=== PATIENT | male | born 1945 | race Caucasian/White ===

== ENCOUNTER 2019-08-29 10:41 | Outpatient (CLI) | payer MEDICARE, OTHER, SELFPAY ==
[2019-08-29 11:02] VITALS: BMI 28.8
--- NOTE | 2019-08-29 11:02 | ECG_ITS ---
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 Interpretive Statements NAME OF STUDY: TREADMILL STRESS ECHOCARDIOGRAM INDICATION: Chest Pain PROCEDURE: At the baseline, the patient's blood pressure was 126/86 mmHg with a heart rate of 74 bpm. The baseline electrocardiogram showed normal sinus rhythm, normal axis with normal ST-Ts. The patient exercised for 4 minutes 20 seconds on a standard Duncan protocol. Patient attained a maximum heart rate of 135 beats per minute(92 % of the maximum predicted heart rate) with a blood pressure at the peak exercise of 188/85 mm Hg oxygen saturation 94%. The EKG at the peak exercise revealed sinus tachycardia with no significant ST-T wave changes. Patient did not have any chest pain or any significant EKG changes with the exercise During the recovery phase, there were no new changes. Blood pressure at the end of the recovery phase was 171/77 mm Hg with a heart rate of 93 beats per minute oxygen saturation 98%. Echocardiographic pictures were taken at the baseline, immediately following the peak exercise and during the recovery phase. CONCLUSION: 1. Normal EKG response to treadmill exercise. 2. No exercise-induced chest pain or cardiac arrhythmia 3. Decreased exercise tolerance, attained a maximum of 7 METs. Maximum VO2 of 24.5 mL/kg/min 4. Please see separate report for the echocardiographic response to exercise. Electronically Signed On 09-02-2019 14:15:19 CDT by Peggy Quezada M.D. [id number]
--- NOTE | 2019-08-29 11:04 | USCV_ITS ---
Cem Ramos Age: 74 Gender: M : 1945 Exam Date: 08/29/2019 11:21 Ordering Phys: Bonnie Lagos Technologist: Josesito Decker Exam Location: [facility] [place] Indication: Rhythm: Sinus Patient History: Dyspnea/SOB, Hypertension, Fomer Smoker, HLD Cardiac Medications: STEPHANIE Inhibitor, Beta ashley, Statin Medications in past 24 hours: None Contrast: Stress Results Protocol: Duncan Total dose(mL): Exercise Duration (min:sec): 4:20 METS: 7.0 Resting HR: 74 Resting BP: 126 / 86 Peak HR: 146 Peak BP: 188 / 86 Max Predicted HR: 146 100 % Max Predicted HR Target HR: 124 Double Product: 46173 Stress Summary: The patient's target heart rate was achieved The hemodynamic response to exercise was normal BP Response: Normal Reason for Termination: Test terminated after reaching target heart rate (85% max predicted) Cardiac Symptoms: Dyspnea ECG Analysis Resting ECG: Stress ECG: Arrhythmia: MEASUREMENTS (Male/Female) Normal Values FINDINGS PROCEDURE: At the baseline, the patient's blood pressure was 126/86 mmHg with a heart rate of 74 bpm. The patient exercised for 4 minutes 20 seconds on a standard Duncan protocol. Patient attained a maximum heart rate of 146 beats per minute (100 % of the maximum predicted heart rate) with a blood pressure at the peak exercise of 188/86 mm Hg. During the recovery phase, there were no new changes. Echocardiographic pictures were taken at the baseline, immediately following the peak exercise and during the recovery phase. Baseline echocardiogram: Normal left ventricular size and systolic function with ejection fraction estimated at 60 %. No regional wall motion abnormalities. Normal right ventricle size and systolic function. Normal left and right atrial size. Structurally normal tricuspid and mitral valve. No pericardial effusion. No intracardiac masses. Peak exercise echocardiogram: Normal augmentation of left ventricular systolic function with exercise. No new regional wall motion abnormalities. Recovery echocardiogram: Left ventricular systolic function returned to normal. No regional wall motion abnormalities. CONCLUSIONS 1. This is a treadmill stress echocardiogram. 2. Fair exercise tolerance, attained a maximum of 7 METs. Double product of 27,449. 3. Normal blood pressure and heart rate response to exercise. 4. Normal echocardiographic response to exercise. 5. Please see separate report for the EKG portion of the study. Peggy Quezada MD (Electronically Signed) Final Date: 02 September 2019 14:24 S
[2019-08-29 11:24] VITALS: BP 135/81; PULSE 99
== END 2019-08-29 10:42 | disposition home or self-care (01) ==
LOC: CDL 10:41
PROVIDERS: Family Provider Nurse Practitioner; Visit Provider Physician Assistant
DX: R07.9 Chest pain, unspecified (principal); R06.02 Shortness of breath
CPT/HCPCS: 93017; 93350

== ENCOUNTER 2020-09-08 06:00 | Outpatient (RCR) | payer MEDICARE, OTHER, SELFPAY | END 2020-09-10 23:59 | disposition home or self-care (01) | LOC: MPT 06:00 | PROVIDERS: PCP Physician Assistant; Referring Provider Family Medicine Adult Medicine; Visit Provider Family Medicine Adult Medicine | DX: M50.30 Other cervical disc degeneration, unspecified cervical region (principal) | CPT/HCPCS: 97140; 97161 ==

== ENCOUNTER 2020-09-11 06:00 | Outpatient (RCR) | payer MEDICARE, OTHER, SELFPAY | END 2020-10-11 23:59 | disposition home or self-care (01) | LOC: MPT 06:00 | PROVIDERS: PCP Physician Assistant; Referring Provider Family Medicine Adult Medicine; Visit Provider Family Medicine Adult Medicine | DX: M50.30 Other cervical disc degeneration, unspecified cervical region (principal) | CPT/HCPCS: 97032; 97110; 97140; G0283 ==

== ENCOUNTER → 2021-01-21 14:24 | Outpatient (BNVA) | payer MEDICARE, OTHER, SELFPAY | PROVIDERS: PCP Physician Assistant; Referring Provider Family Medicine Adult Medicine; Visit Provider Specialist | DX: M17.0 Bilateral primary osteoarthritis of knee (principal) | CPT/HCPCS: 73560; 73565 ==

== ENCOUNTER 2021-02-24 12:44 | Outpatient (CLI) | payer MEDICARE, OTHER, SELFPAY ==
--- NOTE | 2021-02-24 12:51 | XR_ITS ---
WS: [id number] XR chest 2V* 82911 REASON FOR EXAM: dyspnea FINDINGS: The chest is unchanged compared to 11/29/2018. Moderate tortuosity thoracic aorta. Normal heart size. Calcified granulomatous disease in both hemithoraces. No active pulmonary parenchymal or pleural disease. Mild to moderate changes of degenerative spondylosis in the mid and lower thoracic spine. XR/XR chest 2V* 70145 IMPRESSION: No acute chest abnormality.
[2021-02-24 13:20] LABS: Basophils # 0.1 10^3/uL (0.0-0.1); Basophils % 0.6 %; Eosinophils # 0.3 10^3/uL (0.0-0.8); Hematocrit 48.9 % (42.0-52.0); Hemoglobin 16.3 g/dL (11.7-16.6); Lymphocytes # 3.5 10^3/uL (0.8-4.8); Lymphocytes % 41.8 %; Mean Corpuscular HGB Conc 33.3 g/dL (30.0-36.0); Mean Corpuscular Hemoglobin 30.5 pg (28.0-34.0); Mean Corpuscular Volume 91.6 fl (80-94); Mean Platelet Volume 9.5 fL (7.4-10.4); Monocytes # 0.7 10^3/uL (0.2-0.9); Monocytes % 8.3 %; Neutrophils # 3.72 10^3/uL (1.8-7.7); Neutrophils % 45.1 %; Nucleated Red Blood Cells % 0 %; Platelet Count 333 10^3/cmm (130-400); Red Blood Count 5.34 10^6/uL (4.1-5.3); White Blood Count 8.3 10^3/uL (4.0-10.0)
[2021-02-25 16:41] LABS: Alternaria Alternata (M6) Ige <0.10 kU/L; Alternaria Class 0; Bermuda Class 0; Bermuda Grass (G2) Ige <0.10 kU/L; Cat Dander (E1) Ige 0.35 kU/L; Cat Dander Class 1; Common Ragweed (Short) (W1) Ig <0.10 kU/L; D. Farinae Class 0; Dermatophagoides Class 0; Dermatophagoides Farinae (D2) <0.10 kU/L; Dermatophagoides Pteronyssinus <0.10 kU/L; Dog Dander (E5) Ige 0.75 kU/L; Dog Dander Class 2; Elm (T8) Ige <0.10 kU/L; Elm Class 0; English Plantain (W9) Ige <0.10 kU/L; English Plantain Class 0; House Dust (Greer) (H1) Ige 0.14 kU/L; House Dust (Hollister- Stier) 0.18 kU/L; House Dust Class 0/1; Immunoglobulin E 230 kU/L (<OR=114); Johnson Grass (G10) Ige <0.10 kU/L; Johnson Grass Cl 0; June Grass Class 0; June Grass(Kentucky Blue) (G8) <0.10 kU/L; Lamb'S Quarters (Goose Foot) <0.10 kU/L; Lamb'S Quarters Class 0; Maple (Box Elder) (T1) Ige <0.10 kU/L; Maple Class 0; Meadow Fescue (G4) Ige <0.10 kU/L; Meadow Fescue Class 0; Mucor Racemosus Class 0; Oak (T7) Ige <0.10 kU/L; Oak Class 0; Orchard Grass (Cocksfoot) (G3) <0.10 kU/L; Penicillium Class 0; Penicillium Notatum (M1) Ige <0.10 kU/L; Perennial Rye Grass (G5) Ige <0.10 kU/L; Perennial Rye Grass Class 0; Ragweeed Class 0; Rough Marsh Elder (W16) Ige <0.10 kU/L; Rough Marsh Elder Class 0; Sweet Vernal Class 0; Sweet Vernal Grass (G1) Ige <0.10 kU/L; Timothy Grass (G6) Ige <0.10 kU/L; Timothy Grass Class 0
[2021-03-02 14:38] LABS: Aspergillus Fumigatus, Igg Ab, 9.7 mg/L (<=102)
== END 2021-02-24 12:45 | disposition home or self-care (01) ==
LOC: RAD 12:47
PROVIDERS: PCP Physician Assistant; Visit Provider Internal Medicine Pulmonary Disease
DX: R06.00 Dyspnea, unspecified (principal)
CPT/HCPCS: 36415; 71046; 82785; 85025; 86003

== ENCOUNTER → 2021-03-20 11:25 | Outpatient (BNVA) | payer MEDICARE, OTHER, SELFPAY | PROVIDERS: PCP Physician Assistant; Visit Provider Specialist | DX: M17.11 Unilateral primary osteoarthritis, right knee (principal); M25.569 Pain in unspecified knee; Z20.822 Contact with and (suspected) exposure to COVID-19 | CPT/HCPCS: 87635 ==

== ENCOUNTER 2021-03-24 16:58 | Observation (INO) | payer MEDICARE, OTHER, SELFPAY ==
[2021-03-23 08:48] VITALS: BMI 30.7
--- NOTE | 2021-03-23 09:19 | ECG_ITS ---
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 [id number]
[2021-03-23 09:45] LABS: Add Urine Microscopic? NO; Charge for UA Resulting for Rev
[2021-03-23 09:47] LABS: Basophils % 0.4 %; Eosinophils # 0.4 10^3/uL (0.0-0.8); Eosinophils % 5.2 %; Hematocrit 50.7 % (42.0-52.0); Hemoglobin 16.8 g/dL (11.7-16.6); Lymphocytes # 2.7 10^3/uL (0.8-4.8); Lymphocytes % 36.2 %; Mean Corpuscular HGB Conc 33.1 g/dL (30.0-36.0); Mean Corpuscular Hemoglobin 29.7 pg (28.0-34.0); Mean Corpuscular Volume 89.7 fl (80-94); Mean Platelet Volume 9.6 fL (7.4-10.4); Monocytes # 0.6 10^3/uL (0.2-0.9); Monocytes % 8.2 %; Neutrophils # 3.76 10^3/uL (1.8-7.7); Neutrophils % 49.7 %; Nucleated Red Blood Cells % 0 %; Platelet Count 285 10^3/cmm (130-400); Red Blood Count 5.65 10^6/uL (4.1-5.3); Red Cell Distribution Width 12.5 % (12.1-15.1); White Blood Count 7.6 10^3/uL (4.0-10.0)
[2021-03-23 09:58] LABS: Bilirubin Urine Neg (Negative); Blood Urine Neg (Negative); Glucose Urine UA Norm (Normal); Ketones Urine Negative (Negative); Leukocyte Esterase Urine Negative (Negative); Nitrate Urine Negative (Negative); Protein Urine Neg (Negative); Urine Appearance Clear (CLEAR); Urine Color Yellow (Yellow); Urobilinogen Urine Norm (Negative); pH Urine 5 (5-7)
--- NOTE | 2021-03-23 09:59 | P.ANESASSM_ITS ---
Documented by User: Nathan Romano Jr, CRNA 03/23/21 10:00 Pre-Anesthetic Assessment Pre-Anesthetic Assessment: Height/Weight: Height 1.85 m Weight 105.687 kg Proposed Procedure: Operation Date: 03/24/21 14:00 Proposed Procedures p Total Knee Arthroplasty 73808 m17.10(Right) - Radha Rosenbaum MD Social: Social History: No alcohol and No tobacco Exam: Pre-Anes Outpt Exam: alert, oriented x 3, clear to auscultation bilaterally and regular rate & rhythm Airway: Submandibular: WNL Cervical ROM: WNL MP: 2 Dentition: Full History/ROS: No significant history except as noted and No significant complaints Pulmonary: Pulmonary: SOB CV/HEM: CV/HEM: HTN : : None reported Hepatic: Hepatic: None reported GI: GI: GERD Metabolic: Metabolic: DM Musc/skel: Musc/skel: Lower Back Pain and OA/DJD Neuropsych: Neuropsych: None reported Anesthetic Plan: ASA status: 3 Anesthesia: Anesthesia Evaluation and General Risk of > 500 ml blood loss (7ml/kg in children): No PFSH Anesthesia PFSH: Medical History (Updated 03/12/21 @ 10:22 by Radha Rosenbaum MD) Depression Diabetes Diverticulitis Gastro-esophageal reflux History of prostate cancer Hyperlipidemia Hypertension Sleep apnea Surgical History S/P arthroscopic knee surgery Social History Quit status (tobacco): has quit using tobacco Year quit tobacco: 1989 Smoking risk assessment/counseling performed?: Yes Alcohol intake: never Data Anesthesia CBC & Chem 7: 03/23/21 09:38 03/23/21 09:38 Other Labs: Laboratory Results - last 48 hr 03/23/21 03/23/21 09:35 09:38 WBC 7.6 RBC 5.65 H Hgb 16.8 H Hct 50.7 MCV 89.7 MCH 29.7 MCHC 33.1 RDW 12.5 Plt Count 285 MPV 9.6 Neut % (Auto) 49.7 Lymph % (Auto) 36.2 Benson % (Auto) 8.2 Eos % (Auto) 5.2 Baso % (Auto) 0.4 Neut # (Auto) 3.76 Lymph # (Auto) 2.7 Benson # (Auto) 0.6 Eos # (Auto) 0.4 Baso # (Auto) 0.0 Nucleated RBC % (auto) 0 Nucleated RBCs # 0.0 Urine Color Yellow Urine Appearance Clear Urine pH 5 Ur Specific Verdon 1.020 Urine Protein Neg Urine Glucose (UA) Norm Urine Ketones Negative Urine Blood Neg Urine Nitrate Negative Urine Bilirubin Neg Urine Urobilinogen Norm Ur Leukocyte Esterase Negative Cardiac Studies: Stress Echocardiogram 08/29/19 Documented by User: Luis F Savage DO 03/24/21 12:53 Pre-Anesthetic Assessment Pre-Anesthetic Assessment: Familial anesthetic complications: None Was Beta Anabella taken within 24 hours: Yes Was Clonidine taken within 24 hours: N/A Social: Social History: No alcohol and No tobacco Exam: Pre-Anes Outpt Exam: alert, oriented x 3, clear to auscultation bilaterally and regular rate & rhythm Airway: Submandibular: WNL Cervical ROM: WNL MP: 2 Dentition: Chipped History/ROS: No significant complaints Pulmonary: Pulmonary: COPD and Sleep apnea Comments: Former smoker CV/HEM: CV/HEM: Arrythmia and HTN Comments: EKG 03/23/21 Interpretive Statements SINUS RHYTHM WITH FIRST DEGREE AV BLOCK WITH OCCASIONAL SUPRAVENTRICULAR PREMATURE COMPLEXES LEFT AXIS DEVIATION [QRS AXIS < -30] MODERATE INTRAVENTRICULAR CONDUCTION DELAY [110+ ms QRS DURATION] MODERATE VOLTAGE CRITERIA FOR LVH, CONSIDER NORMAL VARIANT [MEETS CRITERIA Stress Test 08/31 CONCLUSIONS 1. This is a treadmill stress echocardiogram. 2. Fair exercise tolerance, attained a maximum of 7 METs. Double product of 27,449. 3. Normal blood pressure and heart rate response to exercise. 4. Normal echocardiographic response to exercise. 5. Please see separate report for the EKG portion of the study. From Doctor Quezada's note 01/01 Mild right carotid stenosis 11/17/17 ECHO CONCLUSIONS 1. Normal left ventricular cavity size. Normal left ventricular systolic function. Left ventricular ejection fraction is estimated at 60 %. No regional wall motion abnormalities. Grade I diastolic dysfunction (abnormal relaxation filling pattern). 2. Normal right ventricular size and systolic function. 3. Normal pulmonary artery pressure. 4. There is no significant valvular abnormality. 5. There are no prior studies to compare. 11/21/17 48 HR HOLTER MONITOR Conclusion: 1. Baseline rhythm is sinus rhythm with first degree AV block. 2. 0.17% of total beats analyzed were ventricular ectopic beats. 3. 0.07% of total beats analyzed were supraventricular ectopic beats. The longest run was 11 beats long and occurred at 9:45 am. 4. No patient symptoms were noted. Hepatic: Hepatic: None reported GI: GI: GERD Metabolic: Metabolic: DM and Thyroid Musc/skel: Musc/skel: OA/DJD Neuropsych: Neuropsych: None reported Anesthetic Plan: ASA status: 3 Anesthesia: Anesthesia Evaluation, Eval. for regional block and Regional (specify below) Other: Spinal with adductor canal block for post op pain control. Risk of > 500 ml blood loss (7ml/kg in children): No PFSH Anesthesia PFSH: Medical History (Updated 03/12/21 @ 10:22 by Radha Rosenbaum MD) Depression Diabetes Diverticulitis Gastro-esophageal reflux History of prostate cancer Hyperlipidemia Hypertension Sleep apnea Surgical History S/P arthroscopic knee surgery Social History Quit status (tobacco): has quit using tobacco Year quit tobacco: 1989 Smoking risk assessment/counseling performed?: Yes Alcohol intake: never Data Anesthesia CBC & Chem 7: 03/23/21 09:38 03/23/21 09:38 Cardiac Studies: Stress Echocardiogram 08/29/19
[2021-03-23 10:10] LABS: Alanine Aminotransferase 34 U/L (0-41); Albumin Level 4.7 g/dL (3.5-5.2); Alkaline Phosphatase 56 IU/L (40-130); Anion Gap 19.9 (5-19); Aspartate Amino Transferase 27 U/L (0-40); Blood Urea Nitrogen 17 mg/dL (8-23); Calcium 10.2 mg/dL (8.5-10.5); Carbon Dioxide 22 mmol/L (22-29); Chloride 101 mmol/L (98-107); Creatinine Clr Calc Pharmacy 90.4932; Globulin 2.8 g/dL (1.3-4.6); Glucose 111 mg/dL (65-115); Osmolality Calculated 290 mOsm/kg (285-295); Potassium 3.9 mmol/L (3.5-5.1); Sodium 139 mmol/L (136-145); Total Bilirubin 0.4 mg/dL (0.15-1.2); Total Protein 7.5 g/dL (6.6-8.7)
[2021-03-24] VITALS (18 sets, daily range): BP systolic 119–138; BP diastolic 68–99; PULSE 54–92; RESP 13–23; TEMP 36.2–36.8; O2SAT 90–99
[2021-03-24 12:29] LABS: Glucose Point of Care 75 mg/dL (70-110)
[2021-03-24] MEDS: acetaminophen 1,000 MG/100 ML PIGGYBACK 400 MG IV ×2 (12:30→17:54)
[2021-03-24] MEDS: CELEcoxib 200 mg Capsule 400 MG PO (12:43)
[2021-03-24] MEDS: sodium chloride 0.9% 1,000 ML 30 ML IV ×2 (12:43→17:51)
--- NOTE | 2021-03-24 12:45 | P.HPUD_ITS ---
Surgery/Procedure H&P Update DATE OF PROCEDURE: March 24, 2021 DATE H&P PERFORMED: 03/11/21 H&P UPDATE INFORMATION: I have reviewed H&P completed within last 30 days, I have examined patient prior to procedure, No changes to prior documentation and H&[place] is in [facility] [place] on date indicated PREOP DIAGNOSIS: Primary osteoarthritis right knee PLANNED PROCEDURE: Operation Date: 03/24/21 14:00 Proposed Procedures p Total Knee Arthroplasty 05084 m17.10(Right) - Radha Rosenbaum MD Related Problem List Diagnoses (1) Primary osteoarthritis of right knee:
--- NOTE | 2021-03-24 13:10 | ANES.PROC ---
Anesthesia Procedures Procedure/Date: 03/24/21 Nerve Block ^: Nerve Block 1: Time Out Performed: Yes (1257) Consent: requested by attending/covering physician and from patient Anesthesia monitors applied: pulse oximetry and BP cuff Nerve block position: supine Anesthetic Used: bupivacaine 0.5% Amount of anesthesia used (mL): 20 Ultrasound used to: recognize landmarks and visualize and ID femerol nerve Nerve Stimulator Used?: No Interscalene/Femoral BLK: 4 stimuplex 21 g needle used for position and inplane approach, visualize local anesthetic spread and no vascular puncture identified Injection: neg aspiration of heme and paresthesia +/- (Negative for paresthesia ) Patient Tolerated Procedure: well and no complications Complications: none Additional Comments: Patient supine, time out, prepped w/ Chloraprep. Using real time US visualization of landmarks, needle entry, and LA spread a total of 20 cc of 0.5% bupivacaine was injected incrementally after negative aspiration. Images saved. Good block, tolerated well.
[2021-03-24] MEDS: clindamycin 600 MG/50 ML PREMIX 100 MG IV (13:12)
[2021-03-24] MEDS: ceFAZolin 1,000 mg SDV 1000 MG IRRIGATION ×2 (14:04→14:05)
[2021-03-24] MEDS: vancomycin 1,000 MG SDV 1000 MG XX (14:05)
--- NOTE | 2021-03-24 15:53 | P.OP_ITS ---
Operative Report Date of procedure: March 24, 2021 Pre-op Diagnosis: Primary osteoarthritis right knee Post-op diagnosis: same Post-op Findings: Significant osteophytes and degenerative osteoarthritic change Procedure Done: Right total knee arthroplasty Implants: The Zoe total knee system with a size 6 triathlon beaded posterior stabilized femur right, a triathlon titanium tibial component size 7 beaded, a triathlon X3 posterior stabilized tibial bearing insert size 7 X 12 mm and a beaded triathlon titanium asymmetric patella size 38 x 11 mm Specimens removed/disposition: Bone, disposed of Pathology: none sent Surgeon: Radha Rosenbaum Reviewer Sales: Folloyulouis stokes [facility] operating room technicians Anesthesia: General (LMA after spinal, ASA 3) Estimated blood loss (mL): 25 Tourniquet time (min): 110 Tourniquet time: At 250 mmHg IV fluids (mL): 800 Urine output (mL): 200 Complications: None Findings: Varus deformity with significant degenerative osteoarthritis Condition: stable Disposition: PACU (Then to floor for postoperative rehabilitation and pain management) Brief History: This 75-year-old gentleman presented to my office with complaints of severe right knee pain causing him significant limitations in activities of daily living. The patient was unresponsive to conservative measures. After extended discussion, the decision was made to proceed with right total knee arthroplasty. Preoperatively, questions were answered and consents were signed. The patient will be admitted to the hospital postoperatively under observation status for postoperative rehabilitation. Procedure: The patient was brought to the operating theater, and after undergoing spinal anesthesia with MAC as well as preoperative regional supplemental block, the patient was converted to an LMA and general anesthetic, ASA 3. The right lower extremity was prepped with Dura-Prep and draped in usual fashion following placement of a tourniquet high on the leg. The leg was then draped free. Fol lowing prepping and draping, the leg was exsanguinated, and the tourniquet was elevated to 250 mm Hg for a total tourniquet time of 110 minutes. Prior to elevation of the tourniquet, but following exposure of the site of surgery, a surgical pause was performed. At the time of the surgical pause, we confirmed the site and side of surgery. Additionally, we confirmed the appropriate and timely administration of preoperative antibiotics, clindamycin 600 mg and Transexemic acid 1 g. The availability of equipment was confirmed, and the patient's identity was verbalized as well. Following the surgical pause, an incision was made centering over the patella continuing proximally and distally as necessary to allow access to the knee joint. Dissection continued through skin and soft tissues using a scalpel. Hemostasis was obtained using electrocautery. The skin incision was followed by a median parapatellar arthrotomy. The leg was extended and the patella was everted. Following this, the leg was returned to flexed position. The distal femur was exposed and a drill hole was made in this for placement of the distal femoral jig. The distal femoral jig was set at 5? of valgus. The distal femoral cutting block was then placed in appropriate position, and an bette wing was used to confirm an appropriate amount of distal femur would be resected. The distal femoral resection was accomplished with 8 mm of bone being resected distally. After the distal femoral resection had been accomplished, the femur was measured and it measured a size 6 in an anterior posterior direction is in a medial lateral direction. A size 6 femoral cutting block was placed in position, and we were then able to accomplish the anterior, posterior and chamfer cuts. This jig was then removed, and the notch guide was placed in position. With the notch guide in appropriate position, the notch was excised including resection of the anterior and posterior cruciate ligaments. This notch was to allow for the posterior stabilized femoral component. At this point, the femur was prepared and attention was directed to the proximal tibia. The posterior knee retractor was placed along with medial and lateral retracto rs. Further resection of the menisci was accomplished as we had better visualization. A complete meniscectomy was performed both medially and laterally with care being taken to protect the popliteus. Retractors were then placed so that the proximal tibia was well visualized. A drill hole was then made in the tibia for placement of the intramedullary guide. This guide was placed so that approximately 2 mm of bone would be resected from the medial tibial plateau, and this resulted in 4+ mm resected from the lateral tibial plateau. The intramedullary guide was utilized supplemented with an extramedullary guide to assure appropriate alignment for the proximal tibial resection. The proximal tibial jig was then evaluated, pinned in position, and the proximal tibial resection was accomplished without difficulty. The jig was removed, and the proximal tibia was measured. It measured a size 7. We then attempted a trial reduction with a size 7 by 11 mm insert. To better balance the knee, a slight medial release was accomplished, and trial reduction was accomplished with an 13 mm insert. The 13 was felt to be slightly too large, but the 11 was felt to hyperextend slightly, therefore, we placed a size 7 x 12 mm tibial bearing insert, posterior stabilized. Repeat with this, the femoral component was placed in position for the trial reduction, and the knee was placed through range of motion. There was excellent stability with excellent varus-valgus alignment with appropriate patellar tracking. Extension was noted to be full as well. This was felt to be the appropriate size insert. There was full extension and flexion without lift off, and the rotation of the tibia was marked. Alignment was checked from the hip to the ankle, and this was noted to be appropriate as well. Attention was then directed to the patella. The patella was measured with a caliper. We resected sufficient patella to leave approximately 15 mm of patella remaining. Measurements of the patella then indicated that a size asymmetric 38 mm x 11 mm was the appropriate patellar size. We then placed the jig to drill for the 3 pegs of the press-fit patella, and these drill holes were made without incident. A trial patella was then placed, and the knee was placed through range of motion. The patella was noted to track nicely without evidence of subluxation. The femur was prepared for a press-fit femur by drilling 2 holes for the femoral pegs. All trial components were subsequently removed. The tibial tray was then pinned into position, and we broached the tibia for the stem of the tibial component. Subsequently, 4 drill holes were made for placement of the press-fit tibia. This was accomplished without difficulty. Care was taken to assure appropriate rotation of the tibia as well as appropriat e position on the proximal tibia. The tibial tray was completely seated on the proximal tibia. Following broaching, the tibial guide was removed, and all surfaces were copiously irrigated. The surfaces were then dried and a bone plug was placed into the distal femur. Exparel was also injected at this point. The Tritanium tibia was impacted into position. The beaded femur was then impacted into position in a cementless fashion. The tibial insert was placed. The patella was pressed into position with a patellar clamp. The knee was irrigated with 20 mL of Betadine and 500 mL of normal saline, and this was allowed to remain in the knee for 3-4 minutes. The knee was then copiously irrigated and suctioned dry. The knee was placed through aggressive range of motion, and with flexion beyond approximately 110 degrees, there was a click with return to full extension. This was addressed with a partial bony resection along the lateral femoral condyle. Following this resection, there was no more clicking with aggressive range of motion. At that time attention was then directed to closure. Closure was accomplished with 0 Vicryl in the fascial tissues. Following this, a 2-0 Monocryl was used in the subcutaneous tissues, and the skin was closed with skin beverley. A sterile dressing was then placed consisting of dermabond Prineo, OpSite, ABD, sterile soft roll, and an Mikael wrap. The patient was returned the Recovery Room in a satisfactory condition. The supplemental regional block was placed while in the recovery room. X-rays were obtained there. The patient will be discharged to the floor for postoperative rehabilitation and pain management as medical consultation. Associated Problem List Diagnoses (1) Primary osteoarthritis of right knee:
[2021-03-24 16:21] LABS: Glucose Point of Care 77 mg/dL (70-110)
--- NOTE | 2021-03-24 16:22 | XR_ITS ---
WS: [id number] XR knee RT 1-2V 25027 REASON FOR EXAM: Status post total knee arthroplasty FINDINGS: Total right knee arthroplasty. Prosthetic components are in proper position and alignment. Knee joint alignment is anatomic. No focal bony abnormality. Postoperative soft tissue changes. XR/XR knee RT 1-2V 24750 IMPRESSION: Total right knee arthroplasty without abnormality.
[2021-03-24] MEDS: fentaNYL 50 mcg/mL INJ 2mL IVP (16:43)
--- NOTE | 2021-03-24 16:45 | SUR.PHASEI ---
Pt given 50 mcg fentanyl . 50 mcg wasted and witnessed by Vinita Posada RN.
--- NOTE | 2021-03-24 17:01 | PM.CONSULT ---
Providers/Reason For Consult Consulting Physician/Specialty*: Hospitalist service Reason for Consult*: Diabetes management postoperative Attending Physician: Radha Rosenbaum MD Primary Care Provider: Bonnie Lagos History of Present Illness History of Present Illness Cem Ramos is a 75 year old male who has history of type 2 diabetes, take long-acting insulin 51 units twice daily along with Victoza and glipizide, hospitalist service requested to manage his diabetes in postoperative phase. He went for right total knee arthroplasty by Dr. Templeton Blood sugar was low before surgery however when I saw him he was eating his dinner, I will use Lantus lower dose twice daily for now along sliding scale and discontinue his glipizide and Victoza. Review of Systems Const: Denies: fever(s) Eyes: Denies: change in vision ENMT: Denies: throat pain Card: Denies: chest pain Resp: Denies: dyspnea GI: Denies: abdominal pain : Denies: flank pain Musc: Denies: neck pain Skin/Breast: Denies: rash Neuro: Denies: headache(s) Psych: Denies: anxiety Endo: Denies: polyuria Bao/Lymph: Denies: easy bruising All/Imm: Denies: urticaria Meds/Allergies Home Medications and Allergies Home Medications Medication Instructions Recorded Confirmed Last Taken Type Bacillus coagulans 10 billion cell 1 cell PO DAILY 09/05/19 03/25/21 Unknown History capsule,delayed release cholecalciferol (vitamin D3) 25 25 mcg PO DAILY 09/05/19 03/23/21 Unknown History mcg (1,000 unit) capsule hydrochlorothiazide 25 mg tablet 25 mg PO DAILY 09/05/19 03/24/21 03/24/21 History levothyroxine 50 mcg tablet 50 mcg PO DAILY 09/05/19 03/23/21 Unknown History lisinopril 20 mg tablet 30 mg PO DAILY tab 09/05/19 03/23/21 Unknown History metoprolol tartrate 25 mg tablet 25 mg PO BID 09/05/19 03/24/21 03/24/21 History multivitamin 1 tab PO DAILY 09/05/19 03/23/21 Unknown History omeprazole 20 mg capsule,delayed 20 mg PO BID 09/05/19 03/23/21 Unknown History release primidone 50 mg tablet 100 mg PO DAILY tab 09/05/19 03/23/21 Unknown History tizanidine 4 mg tablet 4 mg PO Q8H PRN 09/05/19 03/23/21 Unknown History ascorbic acid (vitamin C) 500 mg 500 mg PO DAILY 12/25/20 03/25/21 Unknown History capsule atorvastatin 20 mg tablet 20 mg PO DAILY 12/25/20 03/23/21 Unknown History gabapentin 600 mg tablet 600 mg PO TID tab 12/25/20 03/23/21 Unknown History glipizide 10 mg tablet 5 mg PO DAILY tab 12/25/20 03/23/21 Unknown History montelukast 10 mg tablet 10 mg PO DAILY 12/25/20 03/23/21 Unknown History fluticasone 250 mcg-salmeterol 50 1 inh INHALATION BID #60 ea 03/02/21 03/23/21 Unknown Rx mcg/dose blistr powdr for inhalation fenofibrate nanocrystallized 145 mg PO DAILY 03/25/21 03/25/21 Unknown History insulin glargine [Lantus U-100 51 unit SUBCUT BID 03/25/21 03/25/21 Unknown History Insulin] liraglutide [Victoza 3-Colt] 1.8 mg SUBCUT Q24H 03/25/21 03/25/21 Unknown History loratadine 10 mg PO DAILY 03/25/21 03/25/21 Unknown History paroxetine HCl 20 mg PO DAILY 03/25/21 03/25/21 Unknown History trazodone 150 mg PO BEDTIME 03/25/21 03/25/21 Unknown History Allergies Allergy/AdvReac Type Severity Reaction Status Date / Time No Known Allergies Allergy Verified 03/11/21 08:51 Current Medications Current Medications Generic Name Dose Route Start Last Admin Trade Name Freq PRN Reason Stop Dose Admin Fentanyl 50 mcg 03/24/21 07:10 03/24/21 16:43 Fentanyl 50 Mcg/Ml Inj 2ml IVP 03/25/21 07:10 50 mcg Q5M PRN Administration Pain level 1-6 PACU Phase I Sodium Chloride 1,000 mls @ 30 mls/hr 03/24/21 12:15 03/24/21 12:43 Sodium Chloride 0.9% IV 03/25/21 12:14 30 mls/hr .Q24H ADELITA Administration PFSH Acute PFSH: Medical History Depression Diabetes Diverticulitis Gastro-esophageal reflux History of prostate cancer Hyperlipidemia Hypertension Sleep apnea Surgical History S/P arthroscopic knee surgery Social History Quit status (tobacco): has quit using tobacco Year quit tobacco: 1989 Smoking risk assessment/counseling performed?: Yes Alcohol intake: never Vitals/I&O/Wt Last Vital Signs Temp 97.2 F L 03/24/21 16:57 Pulse 68 03/24/21 16:57 Resp 18 03/24/21 16:57 BP 129/68 03/24/21 16:57 Pulse Ox 94 03/24/21 16:57 03/24/21 03/24/21 03/24/21 06:59 14:59 22:59 Intake Total 260 / 260 800 / 1060 Output Total 225 / 225 Balance 260 / 260 575 / 835 Weight last 48 hrs Weight 105.687 kg Physical Exam Narrative: EXAM NARRATIVE: Very pleasant elderly male Appears stated age Comfortably Eating dinner EOMI, PERRLA Nonfocal neuro exam S1, S2 Abdomen soft Bilateral breath sound without adventitial rhonchi or crackles Saturating well on room air Right leg is in brace Urinary Catheter Management^: Chapa: Cath Placed During This Visit: yes Urinary Catheter Date of Insertion: 03/24/21 Urinary Catheter Time of Insertion: 13:30 A&P Assessment and plan (1) Primary osteoarthritis of right knee: Status: Acute (2) Diabetes: Status: Acute Additional A&P Information I would recommend the following Addition of Lantus lower dose during hospitalization, he takes 51 units of glargine twice daily at home Add moderate dose sliding scale If Blood sugar stays above 180 we will titrate in the morning Discontinue glipizide, Victoza At the time of discharge he can continue his home regimen, during hospitalization I would keep him on Lantus and moderate dose sliding scale only Hemoglobin A1c 6.9 considering his age we should monitor for signs of hypoglycemia closely Consult Attestations Medical Necessity Statement: As per primary team Time Spent in Patient Care: 16 - 35 minutes Coding Level of Care Code Acute Production Corrugator for Chg Fwd Diagnoses Primary osteoarthritis of right knee M17.11 Diabetes E11.9
[2021-03-24] MEDS: pantoprazole DR 40 mg Tablet PO (17:53)
[2021-03-24] MEDS: metoprolol tartrate 25 mg Tablet PO (17:53)
[2021-03-24] MEDS: calcium carbonate 500 mg Chew Tablet 1000 MG PO (17:53)
[2021-03-24] MEDS: sennosides-docusate Tablet 2 TAB PO (17:53)
[2021-03-24] MEDS: iron polysaccharide complex 150 mg Capsule PO (17:53)
[2021-03-24] MEDS: insulin glargine 100 units/1 mL 40 UNIT SUBCUT (17:53)
[2021-03-24] MEDS: mupirocin oint 22 gm 1 APPLIC NASAL (17:54)
[2021-03-24] MEDS: chlorhexidine gluconate 0.12% Btl 473 mL 30 ML MUCOUS MEM ×2 (18:04→20:29)
[2021-03-24] MEDS: gabapentin 300 mg Capsule 600 MG PO (20:29)
[2021-03-24] MEDS: clindamycin 900 MG/50 ML PREMIX 100 MG IV (20:30)
[2021-03-24 21:51] LABS: Glucose Point of Care 221 mg/dL (70-110)
[2021-03-25] VITALS (7 sets, daily range): BP systolic 128–160; BP diastolic 51–96; PULSE 67–76; RESP 16–18; TEMP 36.9–37.2; O2SAT 91–98
[2021-03-25] MEDS: acetaminophen 1,000 MG/100 ML PIGGYBACK 400 MG IV ×2 (00:47→08:19)
--- NOTE | 2021-03-25 01:15 | ANE.PACU2 ---
Inpatient post-anesthesia follow up: Airway intact: Yes Vital signs: Temperature 98.4 F Pulse Rate 70 Respiratory Rate 18 Blood Pressure 152/96 Pulse Oximetry 98 Oxygen Delivery Me thod Room Air Oxygen Flow Rate 6 Fraction of Inspir ed Oxygen Hydration adequate: Yes Nausea and vomiting: No Pain level: 3 Mental status: Baseline
[2021-03-25] MEDS: ondansetron 2 mg/ML SDV 2 mL 4 MG IVP (02:34)
--- NOTE | 2021-03-25 02:39 | PC.NURSE ---
assisted to bedside commode and back to bed with 2 person assist. medicated for mild nausea/indigestion.
[2021-03-25 03:11] LABS: Basophils % 0.3 %; Eosinophils # 0.3 10^3/uL (0.0-0.8); Eosinophils % 2.9 %; Hematocrit 42.4 % (42.0-52.0); Lymphocytes # 2.1 10^3/uL (0.8-4.8); Mean Corpuscular Hemoglobin 29.9 pg (28.0-34.0); Mean Corpuscular Volume 90.4 fl (80-94); Mean Platelet Volume 9.5 fL (7.4-10.4); Monocytes # 0.9 10^3/uL (0.2-0.9); Monocytes % 10.6 %; Neutrophils # 5.34 10^3/uL (1.8-7.7); Nucleated Red Blood Cells % 0 %; Platelet Count 252 10^3/cmm (130-400); Red Blood Count 4.69 10^6/uL (4.1-5.3); Red Cell Distribution Width 12.6 % (12.1-15.1); White Blood Count 8.6 10^3/uL (4.0-10.0)
[2021-03-25 03:26] LABS: Estmated Average Glucose 151; Hemoglobin A1C 6.9 % (4.0-6.0)
[2021-03-25 03:30] LABS: Anion Gap 16.8 (5-19); Blood Urea Nitrogen 19 mg/dL (8-23); Calcium 8.3 mg/dL (8.5-10.5); Carbon Dioxide 22 mmol/L (22-29); Chloride 100 mmol/L (98-107); Glucose 123 mg/dL (65-115); Osmolality Calculated 284 mOsm/kg (285-295); Potassium 3.8 mmol/L (3.5-5.1); Sodium 135 mmol/L (136-145)
[2021-03-25] MEDS: clindamycin 900 MG/50 ML PREMIX 100 MG IV ×2 (04:17→13:47)
[2021-03-25] MEDS: oxyCODONE 5 mg IR Tab/Cap PO ×2 (04:17→10:26)
[2021-03-25 06:27] LABS: Glucose Point of Care 129 mg/dL (70-110)
[2021-03-25] MEDS: levothyroxine 50 mcg Tablet PO (08:16)
[2021-03-25] MEDS: gabapentin 300 mg Capsule 600 MG PO (08:16)
[2021-03-25] MEDS: lisinopril 20 mg Tablet 30 MG PO (08:17)
[2021-03-25] MEDS: cholecalciferol (vitamin D3) 1,000 unit Tablet 1000 UNIT PO (08:17)
[2021-03-25] MEDS: pantoprazole DR 40 mg Tablet PO (08:17)
[2021-03-25] MEDS: sennosides-docusate Tablet 2 TAB PO (08:17)
[2021-03-25] MEDS: cholecalciferol (vitamin D3) 1,000 unit Tablet 25 UNIT PO (08:17)
[2021-03-25] MEDS: metoprolol tartrate 25 mg Tablet PO (08:17)
[2021-03-25] MEDS: calcium carbonate 500 mg Chew Tablet 1000 MG PO (08:17)
[2021-03-25] MEDS: multivitamin therapeutic Tablet 1 TAB PO (08:18)
[2021-03-25] MEDS: aspirin 325 mg EC Tablet PO (08:18)
[2021-03-25] MEDS: primidone 50 mg Tablet 100 MG PO (08:18)
[2021-03-25] MEDS: CELEcoxib 200 mg Capsule PO (08:18)
[2021-03-25] MEDS: atorvastatin 40 mg Tablet 20 MG PO (08:18)
[2021-03-25] MEDS: montelukast sodium 10 mg Tablet PO (08:18)
[2021-03-25] MEDS: iron polysaccharide complex 150 mg Capsule PO (08:18)
[2021-03-25] MEDS: hydroCHLOROthiazide 25 mg Tablet PO (08:18)
[2021-03-25] MEDS: insulin glargine 100 units/1 mL 40 UNIT SUBCUT (08:19)
[2021-03-25] MEDS: chlorhexidine gluconate 0.12% Btl 473 mL 30 ML MUCOUS MEM ×2 (08:19→13:46)
[2021-03-25] MEDS: mupirocin oint 22 gm 1 APPLIC NASAL (08:19)
[2021-03-25 11:03] LABS: Glucose Point of Care 260 mg/dL (70-110)
--- NOTE | 2021-03-25 11:05 | PC.CHAP ---
Pastoral Care Encounter/Spiritual Assessment Type of Contact [] Declined duralumin mechanic visit [] Patient/Family/Request visit [] Outpatient visit [] Follow-up visit [] Physician referral [] Code/Alert [x] Routine visit [] Staff referral [] Actively dying [] Patient sleeping [] Family support [] [] Out of room [] Palliative care [] [] Receiving care in room [] Pre-surgical visit [] Trauma [] Long length of stay [] ICU visit [] Other: Relational/Emotional Strength [x] Patient feels connected with others/family/visitors/staff [] Distress [] Loneliness/isolation [] Abandonment Spirituality of Patient [x] Person of Robyn [x] Attends Yazidism of their Robyn []x Believes in Prayer [] Reads Bible or Tenriism materials [] There are Spiritual issues to be addressed Air Conditioning Engineer Interventions [x] Prayer [x] Active listening [x] Non-anxious presence [] Spiritual counseling [] Bereavement support [] Provided bereavement packet [] Provided Bible/devotional materials [] Provided toy/stuffed animal, coloring book to patient or family member [] Provided Communion [] Anointing/[place] [] Salvation [x] Completed spiritual assessment [] Other: Impact on Illness or Injury [] Angry [] Fearful [] Anxious [] Often cries [] Exhaustion [] Unable to work [] Unable to attend orthodox [] Unable to walk/stand [] Unable to read [] Unable to drive [] Unable to eat/drink [] Unable to sleep [] Unable to be with family [] Patient intubated [] Other: Summary patient doing good Time spent with patient 10 min
[2021-03-25] MEDS: insulin lispro 100 unit/1 mL SUBCUT (11:10)
--- NOTE | 2021-03-25 11:25 | PM.MISC ---
Miscellaneous Note Note: Fasting blood sugar and POC higher than target I will go ahead increase Lantus to his home regimen of 51 units twice daily Postop day 1, hemodynamically stable Patient not noticing worsening of his pain Tolerating his diet S1, S2 Saturating well on room air Nonfocal neuro exam Abdomen soft At the time of discharge he can continue all of his diabetic medications Hemoglobin A1c 6.9 Target blood sugar level during hospitalization 140 to 180 mg/dL He can be safely discharged home I would not add any other medications to his antihyperglycemic regimen
--- NOTE | 2021-03-25 13:22 | PM.DCS ---
Discharge Providers Date of Admission: 03/24/21 16:58 Date of Discharge: March 25, 2021 Attending Provider at Admission: Radha Rosenbaum MD Attending Provider at Discharge: Radha Rosenbaum MD Primary Care Provider: Bonnie Lagos Diagnoses at Discharge Discharge Diagnosis (1) Primary osteoarthritis of right knee: Status: Acute (2) Diabetes: Status: Acute (3) Status post total right knee replacement not using cement: Status: Acute Permanent problem details: 03/24/21 Implants: The [employer] total knee system with a size 6 triathlon beaded posterior stabilized femur right, a triathlon titanium tibial component size 7 beaded, a triathlon X3 posterior stabilized tibial bearing insert size 7 X 12 mm and a beaded triathlon titanium asymmetric patella size 38 x 11 mm Reason for Visit Reason for Visit: osteoarthritis right knee Hospital Course Hospital Course This 75-year-old gentleman was admitted following same-day surgery for right total knee arthroplasty. The surgery was well-tolerated, and he was placed on the floor for overnight observation and pain management. Secondary to his diabetes, medicine was consulted for diabetic management, and they have given the approval today for his discharge to home. Physical therapy and nursing feel that he is safe and able to be independent at home. The patient is seen with his . She is comfortable with him being discharged to home, and home health has been arranged. Patient underwent right total knee arthroplasty uneventfully and without complication. He will follow-up with me as previously scheduled. Physical Exam Const: COMMON NORMALS: no acute distress, average body habitus, patient oriented x3 and alert GENERAL APPEARANCE: cooperative and comfortable ORIENTATION/CONSCIOUSNESS: Yes awake HENMT: COMMON NORMALS: normocephalic and atraumatic HEAD & SCALP: normocephalic and atraumatic Eye: GENERAL EYE: appearance normal, both eyes and all related structures Chest: COMMONS NORMALS: normal inspection of the chest Resp: COMMON NORMALS: normal respiratory effort EFFORT & INSPECTION: Yes able to speak in complete sentences and Yes symmetric chest movement Extremity: RIGHT LOWER EXTREMITY: Yes knee joint (Dressing is removed, and wound is benign.) Right knee: Yes inspection (No drainage. Minimal to no swelling.), Yes palpation (Minimal tenderness), Yes ROM (Not evaluated, able to straight leg raise) and Yes neurovascular exam (Intact distally with no evidence of DVT) Neuro: COMMON NORMALS: patient oriented x3 SENSORIUM/ORIENTATION: Yes alert Psych: COMMON NORMALS: mental status grossly normal APPEARANCE: Yes grossly normal ATTITUDE: Yes calm and Yes engaged ATTENTION/CONCENTRATION: Yes attention grossly intact Skin: COMMON NORMALS: no rashes or lesions noted GENERAL SKIN EXAM: no rashes or lesions noted Urinary Catheter Management^: Chapa: Cath Placed During This Visit: yes, but has since been removed by the nurse Reason for Continuing Indwelling Catheter: Required Immobilization for Trauma or Surgery or Anesthesia Urinary Catheter Date of Insertion: 03/24/21 Urinary Catheter Time of Insertion: 13:30 Date Urinary Catheter Removed: 03/25/21 Time Urinary Catheter Discontinued: 06:00 Discharge Data Data Completed and Pending: Completed Studies During Hospitalization Category Date Time Status XR knee RT 1-2V 7 3560 Urgent Exams 03/24/21 16:22 Completed Labs from last 24 hours 03/25/21 03/25/21 03/25/21 11:00 06:25 02:57 WBC RBC Hgb Hct MCV MCH MCHC RDW Plt Count MPV Neut % (Auto) Lymph % (Auto) [place] % (Auto) Eos % (Auto) Baso % (Auto) Neut # (Auto) Lymph # (Auto) [place] # (Auto) Eos # (Auto) Baso # (Auto) Nucleated RBC % (a uto) Nucleated RBCs # Sodium Potassium Chloride Carbon Dioxide Anion Gap BUN Creatinine GFR Calculation Glucose POC Glucose 260 H 129 H Estimat Average Gl ucose 151 Hemoglobin A1c 6.9 H Calculated Osmolal ity Calcium 03/25/21 03/25/21 03/24/21 02:57 02:57 21:48 WBC 8.6 RBC 4.69 Hgb 14.0 Hct 42.4 MCV 90.4 MCH 29.9 MCHC 33.0 RDW 12.6 Plt Count 252 MPV 9.5 Neut % (Auto) 62.0 Lymph % (Auto) 24.0 [place] % (Auto) 10.6 Eos % (Auto) 2.9 Baso % (Auto) 0.3 Neut # (Auto) 5.34 Lymph # (Auto) 2.1 [place] # (Auto) 0.9 Eos # (Auto) 0.3 Baso # (Auto) 0.0 Nucleated RBC % (a uto) 0 Nucleated RBCs # 0.0 Sodium 135 L Potassium 3.8 Chloride 100 Carbon Dioxide 22 Anion Gap 16.8 BUN 19 Creatinine 1.2 GFR Calculation Not Reportable Glucose 123 H POC Glucose 221 H Estimat Average Gl ucose Hemoglobin A1c Calculated Osmolal ity 284 L Calcium 8.3 L 03/24/21 16:17 WBC RBC Hgb Hct MCV MCH MCHC RDW Plt Count MPV Neut % (Auto) Lymph % (Auto) [place] % (Auto) Eos % (Auto) Baso % (Auto) Neut # (Auto) Lymph # (Auto) [place] # (Auto) Eos # (Auto) Baso # (Auto) Nucleated RBC % (a uto) Nucleated RBCs # Sodium Potassium Chloride Carbon Dioxide Anion Gap BUN Creatinine GFR Calculation Glucose POC Glucose 77 Estimat Average Gl ucose Hemoglobin A1c Calculated Osmolal ity Calcium Vitals: Last Vital Signs Temp 98.5 F 03/25/21 12:00 Pulse 76 03/25/21 12:00 Resp 16 03/25/21 12:00 BP 128/72 03/25/21 12:00 Pulse Ox 95 03/25/21 12:00 Discharge Plan Discharge Patient Disposition: Home Health Service Condition: Stable Prescriptions: New oxycodone 5 mg Tablet 5 mg PO Q4H PRN (Reason: Moderate Pain) 7 Days Qty: 30 RF: 0 acetaminophen 500 mg Tablet 1,000 mg PO Q8H 15 Days Qty: 90 RF: 0 celecoxib 200 mg Capsule 200 mg PO DAILY 30 Days RF: 1 aspirin 325 mg Tablet,Delayed Release (Dr/Ec) 325 mg PO DAILY 30 Days Qty: 30 RF: 0 Continued hydrochlorothiazide 25 mg tablet 25 mg PO DAILY RF: 0 levothyroxine 50 mcg tablet 50 mcg PO DAILY RF: 0 lisinopril 20 mg tablet 30 mg PO DAILY RF: 0 omeprazole 20 mg capsule,delayed release(DR/EC) 20 mg PO BID RF: 0 multivitamin Tablet 1 tab PO DAILY RF: 0 primidone 50 mg tablet 100 mg PO DAILY RF: 0 Probiotic (B. coagulans) 10 billion cell capsule,delayed release(DR/EC) 1 cell PO DAILY RF: 0 cholecalciferol (vitamin D3) 25 mcg (1,000 unit) capsule 25 mcg PO DAILY RF: 0 metoprolol tartrate 25 mg tablet 25 mg PO BID RF: 0 tizanidine 4 mg tablet 4 mg PO Q8H PRN (Reason: Spasms) RF: 0 gabapentin 600 mg tablet 600 mg PO TID RF: 0 glipizide 10 mg tablet 5 mg PO DAILY RF: 0 atorvastatin 20 mg tablet 20 mg PO DAILY RF: 0 montelukast 10 mg tablet 10 mg PO DAILY RF: 0 ascorbic acid (vitamin C) 500 mg capsule 500 mg PO DAILY RF: 0 fluticasone propion-salmeterol [Advair Diskus] 250-50 mcg/dose blister with device 1 inh inhalation BID Qty: 60 RF: 3 paroxetine HCl 20 mg tablet 20 mg PO DAILY RF: 0 trazodone 150 mg tablet 150 mg PO BEDTIME RF: 0 loratadine 10 mg tablet 10 mg PO DAILY RF: 0 fenofibrate nanocrystallized 145 mg tablet 145 mg PO DAILY RF: 0 Lantus U-100 Insulin 100 unit/mL Solution 51 unit SUBCUT BID RF: 0 Victoza 3-Colt 0.6 mg/0.1 mL (18 mg/3 mL) Pen Injector 1.8 mg SUBCUT Q24H RF: 0 Discharge Orders: Discharge Order (Routine); Ordered 03/25/21 Ordered By: Radha Rosenbaum Other Ambulatory Orders: DME: Walker (Order) Location: None Selected Ordered By: Radha Rosenbaum Referrals: [facility] [Outside] Radha Rosenbaum MD [Physician] - 04/06/21 10:15 am Discharge Diet: Advance as tolerated and As Directed Discharge Activity: Increase activity as tolerated, Limit activity as instructed, Use walker/crutches as instructed and As per PT/OT instructions Patient Instructions: Opioid Safety Activity Restrictions/Additional Instructions: Ice and elevation. Weightbearing as tolerated. Gait, strengthening, and ambulation per physical therapy and home health. Discharge Attestations Time Spent in Discharge Care*: greater than 30 min Specific Discharge Activities: educating patient, educating and/or supporting family/caregiver, documenting/other paperwork and evaluating patient/reviewing data Status at Discharge: Cognitive status at discharge: cognitively intact, Behavioral status at discharge: cooperative, Functional status at discharge: independent ambulation Overall status at discharge: patient has a new baseline Quality Metrics Clinical Quality Measures During this hospital stay, did patient experience: None Coding Level of Care Code Acute Chg [facility] note Diagnoses Primary osteoarthritis of right knee M17.11 Diabetes E11.9 Status post total right knee replacement not using cement Z96.651
[2021-03-25] MEDS: sodium chloride 0.9% 250 ML IV (13:46)
== END 2021-03-25 14:43 | disposition home health service (06) ==
LOC: MEDSURG 16:59
PROVIDERS: Internal Medicine; Admitting Provider Specialist; PCP Physician Assistant; Visit Provider Specialist
PROC: (CPT 27447; principal; 2021-03-24 13:45)
DX: M17.11 Unilateral primary osteoarthritis, right knee (principal); E11.9 Type 2 diabetes mellitus without complications; Z79.4 Long term (current) use of insulin; E78.5 Hyperlipidemia, unspecified; I10 Essential (primary) hypertension; G47.30 Sleep apnea, unspecified; Z87.891 Personal history of nicotine dependence; Z85.46 Personal history of malignant neoplasm of prostate
CPT/HCPCS: 27447; 36415; 36416; 51702; 64447; 73560; 76942; 80048; 80053; 81003; 82962; 83036; 85025; 93005; 96372; 97110; 97116; 97161; C1776; C9290; G0378; J0690; J1815 ×2; J2250; J2405; J2704; J3010; J3370; J3490; J7030; J7050

== ENCOUNTER → 2021-04-06 10:16 | Outpatient (BNVA) | payer MEDICARE, OTHER, SELFPAY | PROVIDERS: PCP Physician Assistant; Visit Provider Specialist | DX: Z96.651 Presence of right artificial knee joint (principal); M17.11 Unilateral primary osteoarthritis, right knee | CPT/HCPCS: 73560; 73565 ==

== ENCOUNTER → 2021-04-09 18:00 | Outpatient (BNVA) | payer MEDICARE, OTHER, SELFPAY | PROVIDERS: PCP Physician Assistant; Visit Provider Specialist | DX: M70.41 Prepatellar bursitis, right knee (principal) | CPT/HCPCS: 80500; 87070; 87075; 87205; 89051 ==

== ENCOUNTER → 2021-04-27 09:14 | Outpatient (BNVA) | payer MEDICARE, OTHER, SELFPAY | PROVIDERS: PCP Physician Assistant; Visit Provider Specialist | DX: M17.11 Unilateral primary osteoarthritis, right knee (principal); M70.41 Prepatellar bursitis, right knee; Z96.651 Presence of right artificial knee joint | CPT/HCPCS: 73560; 73565 ==

== ENCOUNTER → 2021-06-01 10:40 | Outpatient (BNVA) | payer MEDICARE, OTHER, SELFPAY | PROVIDERS: PCP Physician Assistant; Visit Provider Internal Medicine Pulmonary Disease | DX: Q90.9 Down syndrome, unspecified (principal); R06.09 Other forms of dyspnea; U09.9 Post COVID-19 condition, unspecified; Z93.0 Tracheostomy status; J44.9 Chronic obstructive pulmonary disease, unspecified | CPT/HCPCS: 99214 ==

== ENCOUNTER 2021-06-02 06:00 | Outpatient (RCR) | payer MEDICARE, OTHER, SELFPAY | END 2021-06-11 23:59 | disposition home or self-care (01) | LOC: MPT 06:00 | PROVIDERS: PCP Physician Assistant; Referring Provider Specialist; Visit Provider Specialist | DX: Z47.1 Aftercare following joint replacement surgery (principal); Z96.651 Presence of right artificial knee joint | CPT/HCPCS: 97110; 97161 ==

== ENCOUNTER 2021-06-12 06:00 | Outpatient (RCR) | payer MEDICARE, OTHER, SELFPAY | END 2021-07-11 23:59 | disposition home or self-care (01) | LOC: MPT 06:00 | PROVIDERS: PCP Physician Assistant; Referring Provider Specialist; Visit Provider Specialist | DX: Z47.1 Aftercare following joint replacement surgery (principal); Z96.651 Presence of right artificial knee joint | CPT/HCPCS: 97110 ==

== ENCOUNTER → 2021-06-22 11:11 | Outpatient (BNVA) | payer MEDICARE, OTHER, SELFPAY | PROVIDERS: PCP Physician Assistant; Visit Provider Specialist | DX: Z87.891 Personal history of nicotine dependence (principal); Z96.651 Presence of right artificial knee joint | CPT/HCPCS: 73560; 73565 ==

== ENCOUNTER 2021-06-24 09:52 | Outpatient (CLI) | payer MEDICARE, OTHER, SELFPAY ==
--- NOTE | 2021-06-24 13:47 | PFTS_ITS ---
Date of Study:06/24/21 Date of Dictation: MECHANICS: Forced vital capacity (FVC) is normal. Forced expiratory volume in one second (FEV1) is normal. FEV1/FVC is normal. FLOW VOLUME LOOP: Very minimal scooping at the lower lung volumes. LUNG VOLUMES: Total lung capacity (TLC) is normal. Residual volume (RV) is increased. DIFFUSING CAPACITY FOR CARBON MONOXIDE: Normal. INTERPRETATION: The prebronchodilator spirometry is normal. Total lung capacity is normal. Residual volume is elevated. Gas exchange (DLCO) is normal. MTDD
== END 2021-06-24 09:53 | disposition home or self-care (01) ==
LOC: RT 09:53
PROVIDERS: PCP Physician Assistant; Visit Provider Internal Medicine Pulmonary Disease
DX: R06.00 Dyspnea, unspecified (principal)
CPT/HCPCS: 94010; 94618; 94726; 94729

== ENCOUNTER 2021-07-12 06:00 | Outpatient (RCR) | payer MEDICARE, OTHER, SELFPAY | END 2021-07-16 23:59 | disposition home or self-care (01) | LOC: MPT 06:00 | PROVIDERS: PCP Physician Assistant; Referring Provider Specialist; Visit Provider Specialist | DX: Z47.1 Aftercare following joint replacement surgery (principal); Z96.651 Presence of right artificial knee joint | CPT/HCPCS: 97110 ==

== ENCOUNTER 2021-07-13 20:00 | Outpatient (CLI) | payer MEDICARE, OTHER, SELFPAY | END 2021-07-13 20:01 | disposition home or self-care (01) | LOC: SLEEP 07-14 07:50 | PROVIDERS: PCP Physician Assistant; Visit Provider Internal Medicine Pulmonary Disease | DX: G47.33 Obstructive sleep apnea (adult) (pediatric) (principal) | CPT/HCPCS: 95810 ==

== ENCOUNTER → 2021-08-24 11:00 | Outpatient (BNVA) | payer MEDICARE, OTHER, SELFPAY | PROVIDERS: PCP Physician Assistant; Visit Provider Internal Medicine Pulmonary Disease | DX: R06.02 Shortness of breath (principal); Z87.891 Personal history of nicotine dependence; J44.9 Chronic obstructive pulmonary disease, unspecified; J45.40 Moderate persistent asthma, uncomplicated; E11.8 Type 2 diabetes mellitus with unspecified complications; E78.5 Hyperlipidemia, unspecified; I10 Essential (primary) hypertension; K57.92 Diverticulitis of intestine, part unspecified, without perforation or abscess without bleeding; G47.30 Sleep apnea, unspecified | CPT/HCPCS: 99214 ==

== ENCOUNTER → 2021-08-31 13:14 | Outpatient (BNVA) | payer MEDICARE, OTHER, SELFPAY | PROVIDERS: PCP Physician Assistant; Visit Provider Nurse Practitioner Family | DX: Z96.651 Presence of right artificial knee joint (principal); M70.41 Prepatellar bursitis, right knee; M17.11 Unilateral primary osteoarthritis, right knee | CPT/HCPCS: 73560; 73565; 99213 ==

== ENCOUNTER → 2021-10-29 14:19 | Outpatient (BNVA) | payer MEDICARE, OTHER, SELFPAY | PROVIDERS: PCP Physician Assistant; Visit Provider Internal Medicine Cardiovascular Disease | DX: R42 Dizziness and giddiness (principal); I10 Essential (primary) hypertension; I47.1 Supraventricular tachycardia; E78.2 Mixed hyperlipidemia; G47.30 Sleep apnea, unspecified; Z87.891 Personal history of nicotine dependence | CPT/HCPCS: 99214 ==

== ENCOUNTER 2021-12-23 20:00 | Outpatient (CLI) | payer MEDICARE, OTHER, SELFPAY | END 2021-12-23 20:01 | disposition home or self-care (01) | LOC: SLEEP 12-24 08:20 | PROVIDERS: PCP Physician Assistant; Visit Provider Internal Medicine Pulmonary Disease | DX: G47.30 Sleep apnea, unspecified (principal) | CPT/HCPCS: 95811 ==

== ENCOUNTER 2022-01-14 07:58 | Outpatient (CLI) | payer MEDICARE, OTHER, SELFPAY ==
[2022-01-14 08:09] VITALS: BMI 31.1
--- NOTE | 2022-01-14 08:09 | ECG_ITS ---
[facility] Test Date: 2022-01-14 Pat Name: Cem Ramos Department: Room: Gender: Male Clinical Interviewer: Barbara Campuzano : 1945 Requested By: Don Sifuentesr Aryan Order Number: [id number] Sofiya MD: Peggy Quezada M.D. Interpretive Statements NAME OF STUDY: LEXISCAN SESTAMIBI STRESS TEST INDICATION: Dyspnea on exertion PROCEDURE: At the baseline, the blood pressure was 143/103 mmHg with a heart rate of 59 bpm. The electrocardiogram showed sinus bradycardia with first-degree AV block. Isolated PVCs, left axis deviation. Nonspecific ST depression. The Lexiscan was infused over a period of 20 seconds. A total of 0.4 milligrams of Lexiscan was infused. The stress phase was continued for a total of 5 minutes. Heart rate at the end of the stress phase was 71 bpm with a blood pressure of 134/89 mmHg. The EKG at the peak infusion revealed sinus rhythm with no significant ST-T wave changes. The study was terminated due to protocol completion. Sestamibi was injected 20 seconds after the Lexiscan infusion. Blood pressure at the end of the recovery phase was 133/88 mmHg with a heart rate of 71 beats per minute. CONCLUSION: 1. No significant EKG changes with the LexiScan infusion. 2. No LexiScan induced chest pain or cardiac arrhythmia. 3. Normal blood pressure and heart rate response. 4. Sestamibi/sestamibi perfusion scan pending; see separate report. Electronically Signed On 01-17-2022 10:52:11 POWER REGULATOR by Peggy Quezada M.D. [id number]
--- NOTE | 2022-01-14 08:10 | NMCV_ITS ---
NM rainer perf SPECT r/s* [id number] Cem Ramos Age: 76 Gender: M : 1945 Exam Date: 01/14/2022 08:10 Ordering Phys: Don Pineda MD Technologist: CHELY Dinero Exam Location: [facility] Indications: DYSPNEA STRESS TEST [facility] IMAGE PROTOCOL Rest/Stress 1 Lexiscan Day Radiopharmaceutical Dose (mCi) Administration Site Administered by Rest: Tc-99m 11.0 IV CHELY Hernandez Sestamibi Stress:Tc-99m 32.4 IV CHELY Hernandez Sestamibi Rest: 14-Jan-2022 60 Discovery 630 Stress: 14-Jan-2022 30 Discovery 630 0.4mg Lexiscan. Images obtained in supine and prone position. SPECT RESULTS Technical Quality: Excellent Raw Data Analysis: Normal Image Corrections: No attenuation or motion correction applied Summed Stress Score: 1 Summed Rest Score: 3 Summed Difference Score: 0 PERFUSION FINDINGS Small size perfusion abnormality of mild severity of apical inferior and mid inferolateral wall on rest images with improved tracer uptake on stress images. This is suggestive of attenuation artifact. FUNCTIONAL RESULTS (calculated via Gated SPECT) Stress Image LV EF (%): 54 Stress EDV (mL):106 TID: 0.77 Stress ESV (mL):49 FUNCTIONAL FINDINGS: The left ventricle is normal in size. Transient Ischemia Dilatation of 0.77. The left ventricular ejection fraction is low normal with a value of 54%. There is normal left ventricular wall thickening. IMPRESSIONS 1. Myocardial perfusion imaging is normal. 2. Overall left ventricular systolic function is low normal without regional wall motion abnormalities, LVEF=54%. 3. EKG portion of the study will be reported separately. Peggy Quezada MD (Electronically Signed) Final Date: 22 January 2022 12:25 S
[2022-01-14] MEDS: regadenoson 0.4 Mg/5 ml Syringe IVP (10:00)
[2022-01-14 10:54] VITALS: BP 133/88; PULSE 69
== END 2022-01-14 07:59 | disposition home or self-care (01) ==
LOC: CDL 08:02
PROVIDERS: PCP Physician Assistant; Visit Provider Internal Medicine Pulmonary Disease
DX: R06.09 Other forms of dyspnea (principal)
CPT/HCPCS: 78452; 93017; A9500; J2785

== ENCOUNTER → 2022-03-24 13:57 | Outpatient (BNVA) | payer OTHER, SELFPAY | PROVIDERS: PCP Physician Assistant; Visit Provider Nurse Practitioner Family | DX: Z96.651 Presence of right artificial knee joint (principal); M17.11 Unilateral primary osteoarthritis, right knee | CPT/HCPCS: 73560; 73565 ==

== ENCOUNTER → 2022-04-29 14:48 | Outpatient (BNVA) | payer MEDICARE, SELFPAY | PROVIDERS: PCP Physician Assistant; Visit Provider Internal Medicine Cardiovascular Disease | DX: R42 Dizziness and giddiness (principal); R00.1 Bradycardia, unspecified; I10 Essential (primary) hypertension; I47.1 Supraventricular tachycardia; E78.2 Mixed hyperlipidemia; G47.30 Sleep apnea, unspecified; Z87.891 Personal history of nicotine dependence | CPT/HCPCS: 99214 ==

== ENCOUNTER → 2022-05-03 14:53 | Outpatient (BNVA) | payer MEDICARE, SELFPAY | PROVIDERS: PCP Physician Assistant; Visit Provider Internal Medicine Cardiovascular Disease | DX: R00.1 Bradycardia, unspecified (principal) | CPT/HCPCS: 93225 ==

== ENCOUNTER → 2022-07-12 08:19 | Outpatient (BNVA) | payer MEDICARE, SELFPAY | PROVIDERS: PCP Physician Assistant; Visit Provider Internal Medicine Pulmonary Disease | DX: J45.40 Moderate persistent asthma, uncomplicated (principal); J44.9 Chronic obstructive pulmonary disease, unspecified; Z87.891 Personal history of nicotine dependence; J82.83 Eosinophilic asthma; G47.33 Obstructive sleep apnea (adult) (pediatric) | CPT/HCPCS: 99214 ==

== ENCOUNTER → 2022-11-04 13:46 | Outpatient (BNVA) | payer MEDICARE, SELFPAY | PROVIDERS: PCP Physician Assistant; Visit Provider Internal Medicine Cardiovascular Disease | DX: R42 Dizziness and giddiness (principal); R00.1 Bradycardia, unspecified; I10 Essential (primary) hypertension; I47.1 Supraventricular tachycardia; E78.2 Mixed hyperlipidemia; G47.30 Sleep apnea, unspecified; Z87.891 Personal history of nicotine dependence | CPT/HCPCS: 99214 ==

== ENCOUNTER → 2023-01-04 14:36 | Outpatient (BNVA) | payer MEDICARE, SELFPAY | PROVIDERS: PCP Physician Assistant; Visit Provider Internal Medicine Pulmonary Disease | DX: J45.40 Moderate persistent asthma, uncomplicated (principal); Z87.891 Personal history of nicotine dependence; G47.33 Obstructive sleep apnea (adult) (pediatric) | CPT/HCPCS: 99214 ==